=== PATIENT | male | born 1995 | race African-American/Black ===

== ENCOUNTER 2021-03-12 21:02 | Emergency (ER) | payer BC, SELFPAY ==
[2021-03-13 14:18] LABS: SARS-CoV-2 PCR by NAA Not Detected (NotDetected)
== END 2021-03-12 22:32 | disposition home or self-care (01) ==
LOC: NAV ERS 21:02
DX: J02.9 Acute pharyngitis, unspecified (principal)
CPT/HCPCS: 87081; 87430; 87635; 99283; U0003; U0005